=== PATIENT | female | born 2000 ===

== ENCOUNTER 2021-01-09 21:05 | Emergency (ER) | payer OTHER ==
[~2021-01-09] VITALS: Ht 167.6 cm; Wt 65.8 kg
[2021-01-10] MEDS ORDERED: PHENAGIL TABLE1 EACH PO (01:29)
[2021-01-10] MEDS ORDERED: ORASEP SPRAY30 ML MM (01:29)
[2021-01-10] MEDS ORDERED: ZITHROMAX500 MG PO (01:29)
[2021-01-10] MEDS ORDERED: ZYNCOF 20-400120 ML PO (01:31)
== END 2021-01-10 01:41 ==
LOC: ER 21:05 → EMR PED 21:05
DX: J06.9 Acute upper respiratory infection, unspecified (principal); Z03.818 Encounter for observation for suspected exposure to other biological agents ruled out